=== PATIENT | female | born 1955 | race Caucasian/White ===

== ENCOUNTER 2023-04-06 22:03 | Inpatient (IN) | payer OTHER ==
[~2023-04-06] VITALS: Ht 170.1 cm; Wt 65.4 kg
[2023-04-06] MEDS ORDERED: GNC NAC 600600 MG PO (22:17)
[2023-04-06] MEDS ORDERED: CYMBALTA30 MG PO (22:18)
[2023-04-06] MEDS ORDERED: KEFLEX 500 MG E2 CAP PO (22:18)
[2023-04-06] MEDS ORDERED: VITAMIN D250 MCG PO (22:21)
[2023-04-06] MEDS ORDERED: TRELEGY ELLIPT1 EACH INH (22:22)
[2023-04-06] MEDS ORDERED: MINIPRESS1 MG PO (22:23)
[2023-04-06] MEDS ORDERED: SERTRALINE HYD100 MG PO (22:23)
[2023-04-06] MEDS ORDERED: LIPITOR40 MG PO (22:24)
[2023-04-06] MEDS ORDERED: CEROVITE SENIO1 EACH PO (22:25)
[2023-04-06] MEDS ORDERED: FEROSUL325 M1 PO (22:25)
[2023-04-06] MEDS ORDERED: VESICARE5 MG PO (22:26)
[2023-04-06] MEDS ORDERED: COLACE100 MG PO (22:26)
[2023-04-06] MEDS ORDERED: TYLENOL EXTRA500 M2 PO (22:28)
[2023-04-06] MEDS ORDERED: PEPCID40 MG PO (22:28)
[2023-04-06] MEDS ORDERED: COZAAR25 M1 PO (22:29)
[2023-04-06] MEDS ORDERED: CELEBREX100 MG PO (22:30)
[2023-04-06] MEDS ORDERED: LASIX40 MG PO (22:31)
[2023-04-06] MEDS ORDERED: PROTONIX40 MG PO (22:31)
[2023-04-06] MEDS ORDERED: ZANAFLEX2 M2 PO (22:32)
[2023-04-06] MEDS ORDERED: METOPROLOL SUC100 M1 PO (22:34)
[2023-04-06] MEDS ORDERED: ANORO ELLIPTA1 EACH INH (22:35)
[2023-04-06] MEDS ORDERED: FLUTICASONE PRO15 G1 T (22:37)
[2023-04-06] MEDS ORDERED: ZYRTEC10 M2 PO (22:38)
[2023-04-06] MEDS ORDERED: Phenergan25 MG PO (22:38)
[2023-04-06] MEDS ORDERED: LINZESS290 MC1 PO (22:39)
[2023-04-06] MEDS ORDERED: MUCUS RELIEF600 MG PO (22:40)
[2023-04-06] MEDS ORDERED: SYNTHROID25 MCG PO (22:41)
[2023-04-06] MEDS ORDERED: LEVOTHYROXINE200 MC2 PO (22:41)
[2023-04-06] MEDS ORDERED: BENZONATATE200 MG PO (22:45)
[2023-04-06] MEDS ORDERED: SINGULAIR10 M1 PO (22:47)
[2023-04-06] MEDS ORDERED: LAMICTAL25 MG PO (22:47)
[2023-04-06] MEDS ORDERED: POTASSIUM CHLO10 ME4 PO (22:49)
[2023-04-06] MEDS ORDERED: PROAIR DIGIHAL90 MCG INH (22:50)
[2023-04-06] MEDS ORDERED: MIRALAX17 GM PO (22:51)
[2023-04-06] MEDS ORDERED: VITRUM SENIOR1 EACH PO (22:52)
[2023-04-06] MEDS ORDERED: BUSPIRONE10 MG PO (22:52)
[2023-04-06] MEDS ORDERED: Bactroban Oint22 GM T (22:53)
[2023-04-07 01:00] VITALS: BP 129/68
[2023-04-07 07:06] LABS: BASO % 0.7 % (0.0-1.0); HEMATOCRIT 42.5 % (37.0-47.0); LYMPH % 37.6 % (27.0-41.0); MEAN CELL VOLUME 93.2 fl (81.0-99.0); MEAN CORPUSCULAR HGB 30.7 pg (27.0-31.0); MEAN CORPUSCULAR HGB CONC 32.9 g/dl (33.0-37.0); MONO # 0.5 10*3/uL (0.1-1.0); MONO % 18.1 % (3.0-9.0); NEUT # 1.2 10*3/uL (2.3-7.9); NEUT % 43.2 % (47.0-73.0); PLATELET COUNT AUTOMATED 151 10*3/uL (130-400); RED BLOOD COUNT 4.56 10*6/uL (4.10-5.10); WHITE BLOOD COUNT 2.7 10*3/uL (4.8-10.8)
[2023-04-07 07:31] LABS: ALKALINE PHOSPHATASE 68 U/L (46-116); BUN 8 mg/dl (9-23); CHLORIDE 103 mmol/L (98-107); CHOLESTEROL 167 mg/dL (<200); LDL CHOLESTEROL 104 mg/dL (9-159); POTASSIUM 3.5 mmol/L (3.4-5.1); SGPT/ALT 13 U/L (5-49); TOTAL PROTEIN 5.3 gm/dL (6.0-8.0); TRIGLYCERIDES 112 mg/dl (<150)
[2023-04-07 07:47] VITALS: BP 109/84
[2023-04-07 08:28] LABS: VITAMIN D, 25-HYDROXY 49.1 ng/mL (30-100)
[2023-04-07 17:29] VITALS: BP 92/58
[2023-04-07 20:00] VITALS: BP 89/65
[2023-04-08 07:59] VITALS: BP 82/52
[2023-04-08 08:09] LABS: ALKALINE PHOSPHATASE 68 U/L (46-116); BUN 9 mg/dl (9-23); CHLORIDE 105 mmol/L (98-107); FREE T4 1.01 ng/dl (0.89-1.76); SGPT/ALT 12 U/L (5-49); TOTAL PROTEIN 5.1 gm/dL (6.0-8.0)
[2023-04-08 08:45] VITALS: BP 110/66
[2023-04-08 18:41] VITALS: BP 103/69
[2023-04-09 07:37] VITALS: BP 104/79
[2023-04-09 11:49] LABS: BUN 10 mg/dl (9-23); CHLORIDE 107 mmol/L (98-107); POTASSIUM 3.4 mmol/L (3.4-5.1)
[2023-04-09 19:04] VITALS: BP 106/56
[2023-04-10 07:26] VITALS: BP 125/78
[2023-04-10 07:58] LABS: BUN 10 mg/dl (9-23); CHLORIDE 106 mmol/L (98-107); POTASSIUM 3.3 mmol/L (3.4-5.1)
[2023-04-10 20:00] VITALS: BP 120/79
[2023-04-11 07:33] VITALS: BP 103/60
[2023-04-11 09:30] VITALS: BP 128/84
[2023-04-11 20:30] VITALS: BP 90/52
[2023-04-12 07:15] LABS: BASO % 0.4 % (0.0-1.0); EOS % 0.4 % (1.0-4.0); HEMATOCRIT 37.6 % (37.0-47.0); LYMPH # 2.4 10*3/uL (1.3-4.4); LYMPH % 45.1 % (27.0-41.0); MEAN CELL VOLUME 94.9 fl (81.0-99.0); MEAN CORPUSCULAR HGB 30.1 pg (27.0-31.0); MEAN CORPUSCULAR HGB CONC 31.6 g/dl (33.0-37.0); MEAN PLATELET VOLUME 9.6 fl (9.6-12.3); MONO # 0.4 10*3/uL (0.1-1.0); NEUT # 2.5 10*3/uL (2.3-7.9); NEUT % 46.9 % (47.0-73.0); PLATELET COUNT AUTOMATED 172 10*3/uL (130-400); RED BLOOD COUNT 3.96 10*6/uL (4.10-5.10); RED CELL DISTRI WIDTH 13.3 % (0-14.5); WHITE BLOOD COUNT 5.3 10*3/uL (4.8-10.8)
[2023-04-12 07:34] VITALS: BP 122/64
[2023-04-12 07:46] LABS: BUN 15 mg/dl (9-23); CHLORIDE 108 mmol/L (98-107); POTASSIUM 3.6 mmol/L (3.4-5.1)
[2023-04-12 20:00] VITALS: BP 104/74
[2023-04-13 07:43] VITALS: BP 136/78
[2023-04-13 20:00] VITALS: BP 127/60
[2023-04-14 08:00] VITALS: BP 128/80
[2023-04-14 17:06] VITALS: BP 100/64
[2023-04-15 08:54] VITALS: BP 131/73
[2023-04-15 20:00] VITALS: BP 123/66
[2023-04-16 08:00] VITALS: BP 115/71
[2023-04-16 19:51] VITALS: BP 102/64
[2023-04-17 08:37] VITALS: BP 122/77
[2023-04-17] MEDS ORDERED: MEMANTINE HCL10 MG PO (09:52)
[2023-04-17] MEDS ORDERED: RIVASTIGMINE1 EAC2 T (09:52)
[2023-04-17] MEDS ORDERED: MIRTAZAPINE15 M2 PO (09:52)
[2023-04-17] MEDS ORDERED: INVEGA SUSTENN156 MG IM (09:52)
[2023-04-17] MEDS ORDERED: LAMOTRIGINE100 MG PO (09:52)
== END 2023-04-17 17:03 | disposition home or self-care (01) | DRG 750 ==
LOC: EDBD → 3N 22:03
PROVIDERS: Family Medicine; Nurse Practitioner; Registered Nurse; ADMIT Psychiatry & Neurology Psychiatry; ATTEND Psychiatry & Neurology Psychiatry
PROC: 0HBRXZZ Excision of Toe Nail, External Approach (ICD-10-PCS; principal; 2023-04-07)
PROC: 0HBRXZZ Excision of Toe Nail, External Approach (ICD-10-PCS; 2023-04-07)
PROC: 0HBRXZZ Excision of Toe Nail, External Approach (ICD-10-PCS; 2023-04-07)
PROC: 0HBRXZZ Excision of Toe Nail, External Approach (ICD-10-PCS; 2023-04-07)
PROC: 0HBRXZZ Excision of Toe Nail, External Approach (ICD-10-PCS; 2023-04-07)
DX: F25.9 Schizoaffective disorder, unspecified (principal); E43 Unspecified severe protein-calorie malnutrition; F03.90 Unspecified dementia, unspecified severity, without behavioral disturbance, psychotic disturbance, mood disturbance, and anxiety; F41.1 Generalized anxiety disorder; E03.9 Hypothyroidism, unspecified; D86.9 Sarcoidosis, unspecified; R74.01 Elevation of levels of liver transaminase levels; F60.3 Borderline personality disorder; F42.9 Obsessive-compulsive disorder, unspecified; F43.10 Post-traumatic stress disorder, unspecified; J45.909 Unspecified asthma, uncomplicated; J43.9 Emphysema, unspecified; I10 Essential (primary) hypertension; M79.7 Fibromyalgia; K25.9 Gastric ulcer, unspecified as acute or chronic, without hemorrhage or perforation; B35.1 Tinea unguium; M20.31 Hallux varus (acquired), right foot; M20.41 Other hammer toe(s) (acquired), right foot; F33.9 Major depressive disorder, recurrent, unspecified; E78.5 Hyperlipidemia, unspecified; Z90.710 Acquired absence of both cervix and uterus; Z87.891 Personal history of nicotine dependence; Z88.1 Allergy status to other antibiotic agents; Z88.8 Allergy status to other drugs, medicaments and biological substances; Z68.22 Body mass index [BMI] 22.0-22.9, adult